=== PATIENT | male | born 1955 | race Caucasian/White ===

== ENCOUNTER → 2016-11-19 | Outpatient (CLI) | payer OTHER ==
[~2016-11-19] VITALS: Ht 185.4 cm; Wt 109.9 kg
[~2016-11-19] MED LIST: ALEVE220 MG PO; CENTRUM SILVER1 EAC2 PO; IBUPROFEN 200200 M1; MELATONIN3 MG PO; MOBIC7.5 MG PO; NORCO 5-325 TA1 EACH PO
--- NOTE | ~2016-11-19 | HPC ---
[facility] [place] [address] PAIN MANAGEMENT CONSULTATION Name: HOMERO QUIÑONEZ Room #: REG BRYNN Pepper#: [id number] Admission: 11/19/16 Attend Phys: Florencio Messina MD Discharge: Date of : 53 Report #: [id number] THIS REPORT FOR: //name// CC: [facility] physician/PCP Florencio Messina DATE OF SERVICE: 11/19/2016 CHIEF COMPLAINT: Low back pain. The patient is a pleasant 61-year-old who I last saw 16 months ago. At that time, he was treated with lumbar facet injections using small amounts of triamcinolone bilaterally at L3-L4, L4-L5 and L5-S1. He responded beautifully to these injections with dramatic reductions in pain. 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 He "threw his back out" and had sudden onset of back pain associated also with some right radiating pain down to the leg in the sciatic distribution. Pain was severe enough that he made an appointment to the clinic. He is in the clinic today reporting that pain has improved, but it is still 3-4 aching pain across his low back and it is affected by walking, prolonged standing. He has taken some anti-inflammatory meloxicam alternating with rstc-[id number]-[id number] ibuprofen and Aleve with some modest relief, but the pain is still severe enough that he felt that a repeat injection might be of benefit. He has some oxycodone that is left over from a year ago, which he took also when the pain was very severe and found this to be helpful getting him through his episode. He is completely out of that medication now and does not take it on a regular basis. It was very helpful during urgent pain around the holidays. Health is otherwise unchanged. Denies other medical problems. REVIEW OF SYSTEMS: Negative except for some mild insomnia for which he uses melatonin. PHYSICAL EXAMINATION: He is pleasant, alert and oriented, moves easily from sitting to standing position and walks without antalgic features. Blood pressure is 135/89, heart rate 74. His height is 6 feet 1 inches with a weight of 242 with a BMI of 32.0. Examination of the spine reveals normal alignment. There is tenderness located along the paravertebral spine, right and left. Most of the pain is in the L5, L4, L3 region and a bit more on the left than the right. Back extension reproduces these symptoms bringing some relief with left back flexion at the lumbar spine. Rotational movement, fjjb-rj-apoa tilt also exacerbates pain. There are no radicular symptoms with sitting, standing or weightbearing. IMPRESSION: Lumbar spondylosis, chronic and recurrence. Axial back pain. [address] [address] PAIN MANAGEMENT CONSULTATION Name: HOMERO QUIÑONEZ Room #: REG BRYNN Pabon#: [id number] Admission: 11/19/16 Attend Phys: Florencio Messina MD Discharge: Date of : 53 Report #: [id number] RECOMMENDATIONS: 1. Continue with anti-inflammatory drugs and I provided him with some medication for severe pain episodes. 2. Stephen flexion exercises were offered. 3. Return to the pain clinic for lumbar facet injections if not improved. We will seek preauthorization. Please note previous duration of response to these injections was over 14 months with 90% improvement. Followup scheduled on 12/08/2016. I have told him that if he is improved, to cancel his appointment. <ELECTRONICALLY SIGNED> By: Florencio Messina MD 12/20/16 1130 1106 1145 Florencio Messina MD /nt
[2016-11-19 08:57] VITALS: BP 135/89
== END | disposition home or self-care (01) ==
LOC: PAIN 06:58
DX: M47.896 Other spondylosis, lumbar region (principal); G89.29 Other chronic pain

== ENCOUNTER → 2016-11-27 | Outpatient (CLI) | payer OTHER ==
[~2016-11-27] VITALS: Ht 185.4 cm; Wt 109.3 kg
--- NOTE | ~2016-11-27 | HPC ---
[facility] [place] [address] PAIN MANAGEMENT CONSULTATION Name: HOMERO QUIÑONEZ Room #: REG BRYNN Lopez.#: [id number] Admission: 11/27/16 Attend Phys: Florencio Messina MD Discharge: Date of : 53 Report #: [id number] THIS REPORT FOR: //name// CC: Simone Moran MD [facility] physician/PCP Florencio Messina DATE OF SERVICE: 11/27/2016 Followup visit for lumbar spondylosis. We have received preauthorization from the patient's insurance company to proceed with lumbar facet injections. He was last seen in the clinic on 11/19/2016. At that time, he noted that he had had significant reduction in pain following his injections in July. This meaningful improvement had lasted over 3 months. It has exacerbated during an activity lifting the garage door. Plan is to repeat the injections as before 3 levels on each side L3-L4, L4-L5 and L5-S1. Potential risks and benefits have been reviewed, questions answered and he is prepared to proceed with injections today under fluoroscopic guidance. IMPRESSION: Lumbar spondylosis, bilateral low back pain. The patient was taken to the fluoroscopic suite, placed prone, skin prepped with ChloraPrep. Skin anesthetized first on the left. As before, he is very, very sensitive to the local anesthetic in the skin. Even a smaller cyst with a 30-gauge needle resulted in quite a bit of discomfort. Anesthetized the skin and subcutaneous tissue and then advanced three 25-gauge spinal needles into position at the posterior inferior joint capsule identified on C-arm. Needle was walked and felt into the recess of the joint and then after negative aspiration, I injected 1 mL of 0.5% bupivacaine mixed with 10-15 mg of triamcinolone. Needle was removed. This was repeated at L3-L4 and L4-L5. The patient was allowed to reposition. C-arm was moved to the right. Near imaged injections were performed at L3-L4, L4-L5 and L5-S1 using the same technique. Same medication was injected in each joint. He tolerated the procedure well and was taken to recovery room for observation. Ice was applied to the back. as frequently as possible for these injections. The importance of maintaining a daily activity exercise program has been stressed at each visit. Followup visit as needed. <ELECTRONICALLY SIGNED> By: Florencio Messina MD 12/20/16 1130 1123 1144 Florencio Messina MD /nt
[2016-11-27 10:26] VITALS: BP 112/84
== END | disposition home or self-care (01) ==
LOC: PAIN 07:09
DX: M47.816 Spondylosis without myelopathy or radiculopathy, lumbar region (principal); M54.5 Low back pain